=== PATIENT | female | born 1945 | race Caucasian/White ===

== ENCOUNTER 2018-10-07 08:03 | Day surgery (SDC) | payer OTHER ==
[~2018-10-07] VITALS: Ht 154.9 cm; Wt 66.3 kg
[2018-10-07] MEDS ORDERED: gabapentin (09:05)
[2018-10-07] MEDS ORDERED: citalopram (09:05)
[2018-10-07] MEDS ORDERED: aspirin (09:05)
[2018-10-07] MEDS ORDERED: esomeprazole (09:05)
[2018-10-07] MEDS ORDERED: amlodipine (09:05)
[2018-10-07 09:12] VITALS: Ht 154.9 cm; Wt 66.3 kg
[2018-10-07] MEDS ORDERED: LIDOCAINE 4% SOLUTION 50 ML BTL ONE (09:41)
[2018-10-07 09:42] VITALS: BP 147/71; RESP 18
[2018-10-07] MEDS ORDERED: MIDAZOLAM 1 MG/ML 2 ML INJ ONE (10:34)
[2018-10-07] MEDS ORDERED: FENTAnyl 50 MCG/ML VIAL ONE (10:34)
[2018-10-07 10:57] VITALS: BP 147/85; RESP 20
== END 2018-10-07 10:59 | disposition home or self-care (01) ==
LOC: GIL 08:03
PROVIDERS: ATTEND Internal Medicine Gastroenterology
DX: Z12.11 Encounter for screening for malignant neoplasm of colon (principal); K29.50 Unspecified chronic gastritis without bleeding; D12.3 Benign neoplasm of transverse colon; K64.0 First degree hemorrhoids; K57.30 Diverticulosis of large intestine without perforation or abscess without bleeding; K20.8 Other esophagitis
CPT/HCPCS: 43239; 45380; 88305; 88312; J2250; J3010; Z7610